=== PATIENT | male | born 1935 | race Caucasian/White ===

== ENCOUNTER 2024-05-28 10:53 | Outpatient (REF) | payer MEDICARE, SELFPAY ==
[2024-05-28 13:58] LABS: MANUAL DIFF FLAG NO
[2024-05-28 14:10] LABS: Basophils Absolute Auto 0.1 X10*3/uL (0.0-0.2); Eosinophils Absolute Auto 0.1 X10*3/uL (0.0-0.4); Eosinophils Percent Auto 1.9 % (0-4); Hematocrit 31.4 % (42.0-52.0); Hemoglobin 9.9 g/dl (14.0-18.0); Imm Gran Abs Auto 0.02 X10*3/uL (0.00-0.03); Imm Gran Pct Auto 0.3 % (0.0-0.4); Lymphocytes Absolute Auto 1.5 X10*3/uL (1.2-4.9); Lymphocytes Percent Auto 21.4 % (20-40); Mean Corpuscular HGB Conc 31.5 g/dl (31.0-36.0); Mean Corpuscular Hemoglobin 27.7 pg (27.0-33.0); Mean Platelet Volume 9.7 fL (9.4-12.4); Monocytes Absolute Auto 0.5 X10*3/uL (0.1-1.2); Monocytes Percent Auto 6.5 % (2-11); Neutrophils Absolute Auto 4.9 x10*3/uL (2.0-8.3); Neutrophils Percent Auto 68.9 % (45-73); Platelet Count 342 X10*3/uL (160-400); Red Blood Count 3.57 X10*6/uL (4.60-5.80); Red Cell Distribution Width 14.6 % (11.0-16.0); White Blood Count 7.2 X10*3/uL (4.8-10.8)
[2024-05-28 14:29] LABS: Estimated Average Glucose 105 mg/dL; Hemoglobin A1C 91.5677 umol/L; Hemoglobin A1c % 5.3 % (<6.0); Total Hemoglobin (HGBA1C) 2619.7925 umol/L
[2024-05-28 14:56] LABS: Alanine Aminotransferase 16 U/L (0-40); Albumin Level 3.9 g/dL (3.5-5.0); Alkaline Phosphatase 67 U/L (39-117); Anion Gap 8 (12-20); Aspartate Amino Transferase 47 U/L (5-37); Bilirubin Total 0.9 mg/dL (0.0-1.0); Blood Urea Nitrogen 24 mg/dL (9-16); Calcium 9.4 mg/dL (8.4-10.2); Carbon Dioxide 26 mmol/L (22-29); Chloride 111 mmol/L (96-108); Cholesterol 121 mg/dL (<200); Estimated Glomerular Filt Rate > 60; Glucose Random 92 mg/dL (60-115); HDL Cholesterol 42 mg/dL (>40); LDL Cholesterol Calculated 67 mg/dL (<100); Potassium 3.9 mmol/L (3.3-5.1); Sodium 141 mmol/L (135-145); Total Protein 6.9 g/dL (6.5-8.0); Triglycerides 63 mg/dL (<150)
== END 2024-05-28 10:54 | disposition home or self-care (01) ==
LOC: HO.WFDLDS 10:53
PROVIDERS: Visit Provider Internal Medicine
DX: I12.9 Hypertensive chronic kidney disease with stage 1 through stage 4 chronic kidney disease, or unspecified chronic kidney disease (principal); N18.30 Chronic kidney disease, stage 3 unspecified; I25.10 Atherosclerotic heart disease of native coronary artery without angina pectoris; Z13.1 Encounter for screening for diabetes mellitus
CPT/HCPCS: 36415; 80053; 80061; 83036; 85025; 96127; 99212

== ENCOUNTER 2024-05-28 11:16 | Outpatient (AMB) | payer MEDICARE, SELFPAY ==
--- NOTE | 2024-05-28 11:26 | MHC.PC.OV ---
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 Intake Note: New [facility] visit [facility] Required: No Accompanied by: Spouse Allergies No Known Allergies Allergy (Verified 05/28/24 11:36) Tobacco use date assessed: 05/28/24 Fall risk assessment: 2 + Falls in past year Last assessed Fall Risk: 05/28/24 Dental Screening Dental Screen Date: 05/28/24 Did you have a dental visit in the last 12 months?: No Did you have a dental problem in the last 6 months where you did not have access to dental care?: No Was dental information given to patient?: Patient declined (has false teeth) HPI HPI Comments History of Present Illness Details The patient is a 88 year old male with a past medical history of CAD s/p NSTEMI with PCI, hypertension, hyperlipidemia, CKD, OA, prostate cancer s/p radiation, ractal cancer s/p resection presenting to reestablish care CV: NSTEMI 03/2023-underwent impella assisted PCI with SILVINA to prox LAD. Recovered LVEF 50-55%, moderate , MR. asa, lipitor, toprol. Has attended cardiac rehab. Follows with cardiology at [facility]. CKD: Normalized Cr. Avoids NSAIDs Heme/Onc -Anemia-stable. -Prostate cancer s/p radiation -Rectal cancer s/p resection 2013 Colonoscopy with polypectomy 11/03/2020 ROS CONSTITUTIONAL: Denies weight loss, fever and chills. HEENT: Denies changes in vision and hearing. RESPIRATORY: Denies SOB and cough. CV: Denies palpitations and CP GI: Denies abdominal pain, nausea, vomiting and diarrhea. : Denies dysuria and urinary frequency. MSK: Denies new myalgia and joint pain. SKIN: Denies rash and pruritus. NEUROLOGICAL: Denies headache PSYCHIATRIC: Denies recent changes in mood. PHYSICAL EXAM: GENERAL: Alert and oriented x 3. NAD EYES: EOMI. Anicteric. HENT: Moist mucous membranes. No scleral icterus. No cervical lymphadenopathy. LUNGS: Clear to auscultation bilaterally. CARDIOVASCULAR: Regular rate and rhythm. No murmur. No JVD. ABDOMEN: Soft, non-tender +bs EXTREMITIES: No edema. Non-tender. SKIN: No rashes or lesions. Warm. NEUROLOGIC: No focal neurological deficits. CN II-XII grossly intact PSYCHIATRIC: Cooperative. Appropriate mood and affect [facility] Surgical History History of hip surgery H/O colonoscopy with polypectomy Family History Father Heart attack Social History Housing: Apartment (first floor) Alcohol intake: former Patient Tobacco Use Status: Former Tobacco user (quit 2012) Cigarette Packs Per Day: 1 Years Smoked: 60 e-Cigarette/Vaping Use: Never Used service: Yes Current occupational status: retired Cognitive needs: No Hearing needs: Yes (hearing aid left ear, deaf in the right ear.) Vision needs: Yes (glasses) Questionnaire PHQ-9 Over the last 2 weeks, how often have you been bothered by any of the following problems? 1. Little interest or pleasure in doing things: not at all 2. Feeling down, depressed, or hopeless: not at all 3. Trouble falling or staying asleep, or sleeping too much: not at all 4. Feeling tired or having little energy: not at all 5. Poor appetite or overeating: not at all 6. Feeling bad about yourself - or that you are a failure or have let yourself or your family down: not at all 7. Trouble concentrating on things, such as reading the newspaper or watching television: not at all 8. Moving or speaking so slowly that other people could have noticed. Or the opposite - being so fidgety or restless that you have been moving around a lot more than usual: not at all 9. Thoughts that you would be better off or of hurting yourself in some way: not at all Total score: 0 Depression Screening Interpretation: Negative Depression Screening Done: Yes 80366 - PHQ-9 Billing: Yes Source: Developed by Drs. Solis Alvarado, Karrie Rocha, Steven Brock and colleagues, with an educational lucie from [employer]. Thrive Questionnaire Date Thrive assessed: 05/28/24 I am a: Patient What is your living situation today?: I have a steady place to live Within the past 12 months, did the food you bought not last and you didn't have the money to get more?: Never true Within the past 12 months, did you worry whether your food would run out before you got money to buy more?: Never true Do you have trouble paying for medicines?: No Do you have trouble getting transportation to medical appointments?: No Do you have trouble paying your heating and electricity bill?: No Do you have trouble taking care of your child, family member or friend?: I choose not to answer this question Do you have trouble with day-to-day activities such as bathing, preparing meals, shopping, managing finances, etc.?: No Are you currently unemployed and looking for a job?: No Are you interested in more education?: No Please select the resources that you would like help with: None Currently or been in a relationship where the following occur: No concerns reported THRIVE Score: 0 AUDIT C Alcohol Use Questionnaire (AUDIT-C) 1. How often do you have a drink containing alcohol?: Never Total Score: 0 CAIN-7 AMB Questionnaire CAIN-7 Date CAIN - 7 assessed: 05/28/24 Feeling nervous, anxious, or on edge: 0 = Not at all Not being able to stop or control worryin = Not at all Worrying too much about different things: 0 = Not at all Trouble relaxin = Not at all Being so restless that it is hard to sit still: 0 = Not at all Becoming easily annoyed or irritable: 0 = Not at all Feeling afraid as if something awful might happen: 0 = Not at all Total CAIN-7 score (0-4 normal; 5-9 mild; 10-14 moderate; 15-21 severe): 0 Source: Developed by Drs. Solis Alvarado, Karrie Rocha, Steven Brock and colleagues, with an educational lucie from [employer]. CAIN-7 Assessment Billing CAIN-7 Assessment Tool: CAIN-7 Assessment 04834 Physical exam (Primary Care) Vital Signs: Last Vital Signs BP 126/58 L 05/28/24 11:43 Pulse Ox 100 05/28/24 11:43 Oxygen Delivery Method Room Air 05/28/24 11:43 BMI result Body Mass Index 26.4 Tobacco/Smoking Status: Tobacco use Status Tobacco use date assessed 05/28/24 05/28/24 11:48 Patient Tobacco Use Status Former Tobacco user (quit 05/28/24 12:04 2012) e-Cigarette/Vaping Use Never Used 05/28/24 12:04 PHQ-9: PHQ-9 Score PHQ-9: Total score 0 05/28/24 13:39 Depression Screening Interpretation: Negative Thrive Assessment: Date of Thrive Assessment Date Thrive assessed 05/28/24 05/28/24 12:04 Currently or been in a relationship where the following occur: No concerns reported Coding Level of Care Code Est Pt Level 4 (30221) Complex EM visit Add On G2211 Diagnoses Stage 3 chronic kidney disease, unspecified whether stage 3a or 3b CKD N18.30 Chronic kidney disease stage: stage 3 (moderate) Chronic kidney disease stage 3 subtype: unspecified whether 3a or 3b Primary hypertension I10 Hypertension type: primary hypertension Coronary artery disease involving [place] coronary artery, unspecified whether angina present, unspecified whether [place] or transplanted heart I25.10 Coronary Disease-Associated Artery/Lesion type: [place] artery [place] vs. transplanted heart: unspecified whether [place] or transplanted heart Associated angina: unspecified whether angina present Additional Codes CAIN-7 Assessment Billing - CAIN-7 Assessment Tool: CAIN-7 Assessment 81539 ([id number]) PHQ-9 - 40434 - PHQ-9 Billing: Yes ([id number]) Assessment & Plan Assessment & Plan (1) CKD (chronic kidney disease): Code(s): N18.9 - Chronic kidney disease, unspecified Category: Medical Qualifiers: Chronic kidney disease stage: stage 3 (moderate) Chronic kidney disease stage 3 subtype: unspecified whether 3a or 3b Qualified Code(s): N18.30 - Chronic kidney disease, stage 3 unspecified Plan: Has been stable. Avoiding NSAIDs (2) Hypertension: Code(s): I10 - Essential (primary) hypertension Category: Medical Qualifiers: Hypertension type: primary hypertension Qualified Code(s): I10 - Essential (primary) hypertension Plan: well controlled on current medication (3) CAD (coronary artery disease): Code(s): I25.10 - Atherosclerotic heart disease of [place] coronary artery without angina pectoris Category: Medical Qualifiers: Coronary Disease-Associated Artery/Lesion type: [place] artery [place] vs. transplanted heart: unspecified whether [place] or transplanted heart Associated angina: unspecified whether angina present Qualified Code(s): I25.10 - Atherosclerotic heart disease of [place] coronary artery without angina pectoris Plan: No angina Following with cardiology regularly Medications: New metoprolol succinate ER 25 mg PO DAILY 90 tabs 3RF valsartan 40 mg PO DAILY 90 tabs 3RF fluticasone propionate 50 mcg/actuation 1 inh inhalation BID 60 ea 3RF betamethasone, augmented 0.05 % (Diprolene (augmented)) 1 appl topical BID PRN 50 grams 3RF skin irritation Desitin 40 % (zinc oxide-cod liver oil) 1 appl topical BID PRN 136 grams 3RF skin irritation NS diphenhydramine HCl (Allergy Relief (diphenhydramine)) 25 mg PO BEDTIME PRN 90 tabs 3RF sleep aspirin 1 tab PO DAILY 90 tabs 3RF atorvastatin 80 mg PO BEDTIME 90 tabs 3RF
[2024-05-28 11:43] VITALS: BP 126/58; O2SAT 100; BMI 26.4
== END 2024-05-28 13:54 | disposition home or self-care (01) ==
PROVIDERS: PCP Internal Medicine; Visit Provider Internal Medicine
DX: N18.30 Chronic kidney disease, stage 3 unspecified (principal); I10 Essential (primary) hypertension; I25.10 Atherosclerotic heart disease of native coronary artery without angina pectoris

== ENCOUNTER 2025-02-10 13:15 | Outpatient (AMB) | payer MEDICARE, OTHER, SELFPAY ==
--- NOTE | 2025-02-10 14:15 | A.OFFVIS_ITS ---
Intake Vital Signs 02/10/25 14:17 Height 5 ft 8.5 in Weight 176 lb 8 oz BMI 26.4 BP 118/56 L Blood Pressure Location Lt brachial Position Sitting Respiration 14 Pulse 50 Pulse Source Pulse Oximeter Pulse Oximetry (%) 96 Oxygen Delivery Method Room Air Intake Visit Reasons: awv / memory issues Intake Note: Medical wellness visit [place] Required: No Allergies No Known Allergies Allergy (Verified 05/28/24 11:36) Do you need a note to return to daycare/school/sports/work: No HPI HPI Comments History of Present Illness Details The patient is a 89 year old male with a past medical history of CAD s/p NSTEMI with PCI, hypertension, hyperlipidemia, CKD, OA, prostate cancer s/p radiation, rectal cancer s/p resection presenting for MWV CV: NSTEMI 03/2023-underwent impella assisted PCI with SILVINA to prox LAD. Recovered LVEF 50-55%, moderate , asa, lipitor, valsartn, toprol. Has attended cardiac rehab. Follows with cardiology at [facility]. CKD: Normalized Cr. Avoids NSAIDs Heme/Onc -Anemia-stable. -Prostate cancer s/p radiation -Rectal cancer s/p resection 2013 Colonoscopy with polypectomy 11/03/2020 HRA reviewed Care team reviewed MMSE 18 which is consistent with wifes worry regarding patients memory. She would like a referral to neurology. Declines medications at this time ROS CONSTITUTIONAL: Denies weight loss, fever and chills. HEENT: Denies changes in vision and hearing. RESPIRATORY: Denies SOB and cough. CV: Denies palpitations and CP GI: Denies abdominal pain, nausea, vomiting and diarrhea. : Denies dysuria and urinary frequency. MSK: Denies new myalgia and joint pain. SKIN: Denies rash and pruritus. NEUROLOGICAL: see HPI PSYCHIATRIC: Denies recent changes in mood. PHYSICAL EXAM: GENERAL: Alert and oriented x 3. NAD EYES: EOMI. Anicteric. HENT: Moist mucous membranes. No scleral icterus. No cervical lymphadenopathy. LUNGS: Clear to auscultation bilaterally. CARDIOVASCULAR: Regular rate and rhythm. No murmur. No JVD. ABDOMEN: Soft, non-tender +bs EXTREMITIES: No edema. Non-tender. SKIN: No rashes or lesions. Warm. NEUROLOGIC: Mild aphasia. CN II-XII grossly intact PSYCHIATRIC: Cooperative. Appropriate mood and affect [facility] Surgical History History of hip surgery H/O colonoscopy with polypectomy Family History Father Heart attack Social History Housing: Apartment (first floor) Alcohol intake: former Patient Tobacco Use Status: Former Tobacco user (quit 2012) Cigarette Packs Per Day: 1 Years Smoked: 60 e-Cigarette/Vaping Use: Never Used service: Yes Current occupational status: retired Cognitive needs: No Hearing needs: Yes (hearing aid left ear, deaf in the right ear.) Vision needs: Yes (glasses) Questionnaire Medicare Wellness Checkup What is your age?: 80 or older What gender do you identify with?: male During the past 4 weeks, how much have you been bothered by emotional problems such as feeling anxious, depressed, irritable, sad or downhearted, and blue?: not at all During the past 4 weeks, has your physical & emotional health limited your social activities with family, friends, neighbors, or groups?: not at all During the past 4 weeks, how much bodily pain have you generally had?: very mild pain During the past 4 weeks, was someone available to help you if you needed & wanted help?: yes, a little During the past 4 weeks, what was the hardest physical activity you could do for at least 2 minutes?: light Can you get to places out of walking distance without help? (For eg., can you travel alone on buses, taxis or drive your car?): Yes Can you go shopping for groceries or clothes without someone's help?: Yes Can you prepare your own meals?: Yes Because of any health problems, do you need the help of another person with your personal care needs such as eating, bathing, dressing or getting around the house?: No Can you handle your own money without help?: Yes During the past 4 weeks, how would you rate your health in general?: very good During the past 4 weeks how have things been going for you?: very well; could hardly better Are you having difficulties driving your car?: no Do you always fasten your seat belt when you are in a car?: yes, usually During past 4 weeks, have you been bothered by the following: never: Falling or dizzy when standing up, Sexual problems?, Trouble eating well?, Teeth or denture problems?, Problems using the telephone? and Tiredness or fatigue? Have you fallen 2 or more times in the past year?: No Are you afraid of falling?: No Are you a smoker?: no During the past 4 weeks, how many drinks of wine, beer, or other alcoholic beverages did you have?: no alcohol at all Do you exercise for about 20 minutes 3 or more times a week?: yes, some of the time Have you been given information to help with the following?: yes: Hazards in your house that might hurt you? and yes: Keeping track of your medications? How often do you have trouble taking medicines the way you have been told to take them?: I always take medicine as prescribed How confident are you that you can control & manage most of your health problems?: very confident What is your race?: White Mini Mental State Exam (MMSE) Orientation What is the (year) (season) (date) (day) (month)?: year (2024), date (), day () and month (January) Where are we (state) (county) (town or city) (hospital) (floor)?: town or city ([place]) and floor (first) Registration Name of 3 unrelated objects clearly and slowly, then ask patient to repeat all 3 of them. (1st repeat determines score. Make sure they can repeat all three): object 1 (ball), object 2 (flag) and object 3 (tree) Attention & Calculation (CHOOSE ONE) Spell WORLD backwards (DLROW): 2 letters Recall Ask patient to repeat the 3 items from question #3.: object 1 (ball) Language Show patient a wristwatch & ask what it is. Repeat for pencil.: watch and pencil Ask the patient to repeat the phrase 'No ifs, ands, or buts' after you.: correct Ask the patient to 'take a piece of paper with their right hand' 'fold paper in half' 'place paper on floor': take paper in right hand and place paper on floor Print the sentence 'CLOSE YOUR EYES' on a piece. If patient actually closes eyes then score.: followed written direction Score Score: 18 Activity of Daily Living Bathing - sponge bath, tub bath or shower: receives no assistance (gets in/out by self, if usual bathing means Dressing - getting clothes from closets & drawers, including inner/outer garments & fasteners.: gets clothes & gets completely dressed without help Toileting - going to the 'toilet room' for urine/bowel elimination & cleaning self/arranging clothes: goes to toilet room, cleans self, arranges clothes without help Transfer: moves in & out of bed and chair without help (may use support object) Continence: controls urination/bowel movements completely by self Feeding: feeds self without help Total Score: 0 Information obtained from: patient Using telephone: independent Traveling: needs assistance Shopping: needs assistance Preparing meals: needs assistance Housework: independent Taking medicine: needs assistance Managing money: needs assistance Physical Exam Vital Signs: Last Vital Signs Pulse 50 02/10/25 14:17 Resp 14 02/10/25 14:17 BP 118/56 L 02/10/25 14:17 Pulse Ox 96 02/10/25 14:17 Oxygen Delivery Method Room Air 02/10/25 14:17 BMI result Body Mass Index 26.4 Office Procedures Flu Questionnaire Does the patient have a severe egg allergy?: No Does the patient have severe life threatening allergies?: No Does the patient have a fever or illness today?: No Has the patient ever had Guillain-Prosperity Syndrome?: No Has the patient ever had any past reaction to a flu shot?: No Immunizations Fluarix [id number] (PF) 45 mcg (15 mcg x 3)/0.5 mL IM syringe Performing Provider: Amparo Garza MD Performing Location: [facility] [place] [facility] Administered by: Joanne Eddy CMA on 02/10/25 15:41 Dose Route Admin Location Dispensed Lot Number Expiration Date [facility] Breakfast Manager 0.5 mL IM Left Deltoid 0.5 mL [id number] 11/11/25 [id number] [employer] VIS Given Date VIS Provided VIS Publication Date 02/10/25 Single Vaccine 24 Eligibility Eligibility Date Funding Source Not [facility] Eligible 02/10/25 Private Assessment & Plan Assessment & Plan (1) Medicare annual wellness visit, subsequent: Code(s): Z00.00 - Encounter for general adult medical examination without abnormal findings Plan 89 year old for MWV Interval history reviewed Memory loss-refer to neurology. MRI ordered. Labs ordered Orders: Orders Complete Blood Count Auto Diff 02/10/25 I10 - Essential (primary) hypertension, I25.10 - Atherosclerotic heart disease of [place] coronary artery without angina pectoris, M79.672 - Pain in left foot, N18.30 - Chronic kidney disease, stage 3 unspecified Comprehensive Met. Panel 02/10/25 I10 - Essential (primary) hypertension, I25.10 - Atherosclerotic heart disease of [place] coronary artery without angina pectoris, M79.672 - Pain in left foot, N18.30 - Chronic kidney disease, stage 3 unspecified Vitamin B12 and Folate 02/10/25 R41.3 - Other amnesia Lipid Panel 02/10/25 I10 - Essential (primary) hypertension, I25.10 - Atherosclerotic heart disease of [place] coronary artery without angina pectoris, M79.672 - Pain in left foot, N18.30 - Chronic kidney disease, stage 3 unspecified Hemoglobin A1c 02/10/25 I10 - Essential (primary) hypertension, I25.10 - Atherosclerotic heart disease of [place] coronary artery without angina pectoris, M79.672 - Pain in left foot, N18.30 - Chronic kidney disease, stage 3 unspecified IRON PROFILE 02/10/25 I10 - Essential (primary) hypertension, I25.10 - Atherosclerotic heart disease of [place] coronary artery without angina pectoris, M79.672 - Pain in left foot, N18.30 - Chronic kidney disease, stage 3 unspecified TSH reflex Free T4 02/10/25 I10 - Essential (primary) hypertension, I25.10 - Atherosclerotic heart disease of [place] coronary artery without angina pectoris, M79.672 - Pain in left foot, N18.30 - Chronic kidney disease, stage 3 unspecified MR head/brain wo con 02/10/25 R41.3 - Other amnesia Influenza [id number] Immunization 02/10/25 Z23 - Encounter for immunization Referrals 2 Neurology Referral R41.3 - Other amnesia Podiatry Referral M79.672 - Pain in left foot Medications: New levocetirizine (Xyzal) 5 mg PO DAILY PRN 90 tabs 3RF allergy symptoms menthol-zinc oxide 0.44-20.6 % (Calmoseptine) 1 appl topical QID PRN 113 grams 3RF skin irritation Discontinued Desitin 40 % (zinc oxide-cod liver oil) Discontinued Reason: Doctor's Order 1 appl topical BID PRN 136 grams 3RF skin irritation NS Quality Reporting (2019) Fall Risk Screening ([facility] 139) Last assessed Fall Risk: 02/10/25 Fall risk assessment: No Falls in past year Coding Level of Care Code Medicare Subsequent (G0439) Diagnoses Medicare annual wellness visit, subsequent Z00.00
[2025-02-10 14:17] VITALS: BP 118/56; PULSE 50; RESP 14; O2SAT 96; BMI 26.4
== END 2025-02-10 15:11 | disposition home or self-care (01) ==
LOC: HO.HMCFM 13:16
PROVIDERS: PCP Internal Medicine; Visit Provider Internal Medicine
DX: Z23 Encounter for immunization (principal)

== ENCOUNTER 2025-02-10 13:15 | Outpatient (REF) | payer MEDICARE, OTHER, SELFPAY ==
[2025-02-10 17:42] LABS: MANUAL DIFF FLAG NO
[2025-02-10 17:51] LABS: Hematocrit 32.9 % (42.0-52.0); Hemoglobin 10.5 g/dl (14.0-18.0); Imm Gran Abs Auto 0.01 X10*3/uL (0.00-0.03); Imm Gran Pct Auto 0.2 % (0.0-0.4); Lymphocytes Absolute Auto 1.5 X10*3/uL (1.2-4.9); Mean Corpuscular HGB Conc 31.9 g/dl (31.0-36.0); Mean Corpuscular Hemoglobin 28.5 pg (27.0-33.0); Mean Corpuscular Volume 89.2 fL (80.0-98.0); NRBC Abs Auto 0.000 X10*3/uL (0.0-0.012); NRBC Pct Auto 0.0 /100WBC (0.0-0.2); Platelet Count 216 X10*3/uL (160-400); Red Blood Count 3.69 X10*6/uL (4.60-5.80); White Blood Count 6.5 X10*3/uL (4.8-10.8)
[2025-02-10 18:19] LABS: Alanine Aminotransferase 22 U/L (0-40); Albumin Level 4.3 g/dL (3.5-5.0); Alkaline Phosphatase 61 U/L (39-117); Anion Gap 12 (12-20); Aspartate Amino Transferase 40 U/L (5-37); Blood Urea Nitrogen 34 mg/dL (9-16); Calcium 9.6 mg/dL (8.4-10.2); Carbon Dioxide 24 mmol/L (22-29); Chloride 112 mmol/L (96-108); Cholesterol 139 mg/dL (<200); Estimated Glomerular Filt Rate 50; HDL Cholesterol 49 mg/dL (>40); Iron 50 mcg/dL (45-160); Percent Iron Saturation 18 % (15-50); Potassium 4.7 mmol/L (3.3-5.1); Sodium 143 mmol/L (135-145); Total Iron Binding Capacity 273 mcg/dL (228-428); Total Protein 7.3 g/dL (6.5-8.0); Triglycerides 53 mg/dL (<150); Unsaturated Iron Binding 223 ug/dL
[2025-02-10 18:36] LABS: Folate 12.1 ng/mL (> or = 4.0); Vitamin B12 447 pg/mL (200-900)
== END 2025-02-10 13:16 | disposition home or self-care (01) ==
LOC: HO.WFDLDS 13:15
PROVIDERS: PCP Internal Medicine; Visit Provider Internal Medicine
DX: Z00.00 Encounter for general adult medical examination without abnormal findings (principal); I12.9 Hypertensive chronic kidney disease with stage 1 through stage 4 chronic kidney disease, or unspecified chronic kidney disease; N18.30 Chronic kidney disease, stage 3 unspecified; I25.10 Atherosclerotic heart disease of native coronary artery without angina pectoris; M79.672 Pain in left foot; R41.3 Other amnesia; Z13.1 Encounter for screening for diabetes mellitus; Z23 Encounter for immunization
CPT/HCPCS: 36415; 80053; 80061; 82607; 82746; 83036; 83540; 84443; 85025; 90471; 90656

== ENCOUNTER 2025-03-02 10:13 | Outpatient (REF) | payer MEDICARE, OTHER, SELFPAY ==
--- NOTE | ~2025-03-02 | MR_ITS ---
EXAMINATION: MR BRAIN WITHOUT CONTRAST CLINICAL INFORMATION: R 41.3. Other amnesia. COMPARISON: None available. TECHNIQUE: MRI of the brain was obtained using routine sequences without contrast. FINDINGS: No restricted diffusion. No acute intracranial hemorrhage, mass effect, midline shift, hydrocephalus or herniation. Wisdom-white matter differentiation is normal. Bilateral multifocal patchy and confluent deep periventricular white matter subcortical white matter hyperintense T2 FLAIR signal involving centrum semiovale and braxton radiata. Prominence of the extra-axial CSF spaces cerebral sulci, ventricles involving mostly the frontoparietal lobes. Flow-void signal within the main cerebral vessels is normal. Dolichoectatic appearance of the left vertebral vascular system. There is a 6.4 m isointense T1 hypointense T2 no restricted diffusion round signal abnormality at the right porus acusticus. Sellar/suprasellar region demonstrated no signal abnormality or masses. Craniocervical junction is intact with normal position of the cerebellar tonsils. There is a periodontal pannus formation without compressive in the medulla oblongata/upper cervical spinal cord. Edentulous. MR/MR head/brain wo con IMPRESSION: No acute brain abnormality. 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 Recommend dedicated IV contrast enhanced MRI IAC protocol. Electronically signed by: Ab Bae MD 03/03/2025 07:19 AM EDT
== END 2025-03-02 10:14 | disposition home or self-care (01) ==
LOC: HO.MRI 10:13
PROVIDERS: PCP Internal Medicine; Visit Provider Internal Medicine
DX: R41.3 Other amnesia (principal)
CPT/HCPCS: 70551

== ENCOUNTER → 2025-03-02 10:16 | Outpatient (BNV) | payer MEDICARE, OTHER, SELFPAY | PROVIDERS: PCP Internal Medicine; Visit Provider Radiology Diagnostic Radiology | DX: I67.82 Cerebral ischemia (principal); G31.9 Degenerative disease of nervous system, unspecified; G93.9 Disorder of brain, unspecified | CPT/HCPCS: 70551 ==

== ENCOUNTER 2025-05-13 15:32 | Outpatient (AMB) | payer MEDICARE, OTHER, SELFPAY ==
--- OUTSIDE RECORDS SUMMARY | 2025-05-07 23:59 | XMS_ITS | Continuity of Care Document ---
Author Organization [facility] Address [address] [place] [address]- Care Team Providers Care Food Checker Name Role Phone Kayla YI, Amparo Sahu Primary Care Physician [phone] [id number] Date(s): 04/30/25 - 05/07/25 [facility] [address], [place] [address] Attending Physician: Monico Albright MD Admitting Physician: Monico Albright MD Referring Physician: Amparo Garza MD Encounter Type: Office Visit Allergies, Adverse Reactions, Alerts No Known Allergies Immunizations Given and Recorded Vaccine Date Status Refusal Reason influenza virus vaccine, inactivated 03/30/22 Honorio rded influenza virus vaccine, inactivated 03/05/19 Honorio rded SARS-CoV-2 (COVID-19) mRNA-1273 vaccine 04/09/21 R ecorded SARS-CoV-2 (COVID-19) mRNA-1273 vaccine 08/06/20 R ecorded SARS-CoV-2 (COVID-19) mRNA-1273 vaccine 07/09/20 R ecorded tetanus-diphtheria toxoids (Td) 06/14/20 Recorded pneumococcal 13-valent vaccine 01/23/15 Recorded tetanus/diphtheria/pertussis, acel(Tdap) 01/23/15 Recorded pneumococcal 23-valent vaccine 01/18/14 Given Medications Aspirin Low Dose 81 mg oral tablet, chewable 1 tablet = 81 mg, By Mouth, Daily, # 90 tablet, 3 Refills, Maintenance, 08/11/23 11:23:00 AM EDT, [facility] #[id number], Partial fill upon patient request if the prescription is for a schedule II opioid drug., 174, cm, 08/11/23 10:56:00 EDT, Height, 84.6, kg, 07/11/23 14:19:00 EST, Dry Weight Start Date: 08/11/23 Stop Date: 08/05/24 Status: Ordered Medication Dispense Status: Completed Quantity: 90.0 Unit: tablet Total Allowed Fills: 4 Fills Dispensed: 0 atorvastatin 80 mg oral tablet 1 tablet = 80 mg, By Mouth, Daily at bedtime, # 90 tablet, 3 Refills, Maintenance, 06/13/23 1:04:00 PM EST, Tablet, [facility] #[id number], Partial fill upon patient request if the prescription is for a schedule II opioid drug., 174, cm, 05/23/23 14:00:00 EST, Height, 82, kg, 04/24/23 10:38:00 EST, Dry Weight Start Date: 06/13/23 Status: Ordered Medication Dispense Status: Completed Quantity: 90.0 Unit: tablet Total Allowed Fills: 4 Fills Dispensed: 0 Metoprolol Succinate ER 25 mg oral tablet, extended release 1 tablet = 25 mg, By Mouth, Daily, # 90 tablet, 3 Refills, Maintenance, 06/05/23 4:05:00 PM EST, ER Tablet, [facility] #[id number], Partial fill upon patient request if the prescription is for a schedule II opioid drug., 174, cm, 05/23/23 14:00:00 EST, Height, 82, kg, 04/24/23 10:38:00 EST, DryWeight Start Date: 06/05/23 Status: Ordered Medication Dispense Status: Completed Quantity: 90.0 Unit: tablet Total Allowed Fills: 4 Fills Dispensed: 0 nitroglycerin 0.4 mg sublingual tablet 1 tablet = 0.4 mg, Sublingual, Every 5 minutes, PRN Chest Pain, not to exceed 3 doses/15 min--if pain persists, seek medical attention, # 600 tablet, 0 Refills, Maintenance, 02/12/23 12:15:00 PM EDT, Tablet, [facility], Partial fill upon patient request if the prescription is for a schedule II opioid drug., 174, cm, 02/12/23 7:24:00 EDT, Height, 93, kg, 02/06/23 17:44:00 EDT, Dry Weight Start Date: 02/12/23 Status: Ordered Medication Dispense Status: Completed Quantity: 600.0 Unit: tablet Total Allowed Fills: 1 Fills Dispensed: 0 Prevagen = 50 mcg, By Mouth, Daily, 0 Refills, Maintenance, 01/31/25 1:30:00 PM EDT, Partial fill upon patient request if the prescription is for a schedule II opioid drug. Start Date: 01/31/25 Status: Ordered Medication Dispense Status: Completed Total Allowed Fills: 1 Fills Dispensed: 0 valsartan 40 mg oral tablet 40 mg, 1, tablet, By Mouth, Daily, # 90 tablet, Refills 0, Tot. Refills 0, Maintenance, 02/12/23 12:15:00 PM EDT, Route to Pharmacy Electronically, [facility], Partial fill upon patient request if the prescription is for a schedule II opioid drug., 174, cm, 02/12/23 7:24:00 EDT, Height, 93, kg, 02/06/23 17:44:00 EDT, Dry Weight Start Date: 02/12/23 Stop Date: 03/14/23 Status: Ordered Medication Dispense Status: Completed Quantity: 90.0 Unit: tablet Total Allowed Fills: 1 Fills Dispensed: 0 Problem List Condition Confirmation Course Effective Dates Status H ealth Status Informant Arthritis Confirmed Active Former smoker Confirmed Active History of prostate cancer Confirmed Active History of rectal cancer Confirmed Active High cholesterol Confirmed Active High blood pressure Confirmed Active ANJALI (iron deficiency anemia) Confirmed Active NSTEMI (non-ST elevated myocardial infarction) Confirmed Active Osteoarthritis Confirmed Active Rheumatic fever Confirmed Active Vital Signs Most recent to oldest [Reference Range]: 1 Height 173 cm (04/30/25 3:40 PM) Weight 72.72 kg (04/30/25 3:40 PM) Oxygen Saturation [94-100 %] 97 % (04/30/25 3:40 PM) Pulse Rate [55-90 bpm] 53 bpm *L* (04/30/25 3:40 PM) Body Mass Index [18.5-24.99 kg/m2] 24.3 kg/m2 (04/30/25 3:40 PM) Blood Pressure [90-138/55-84 mm Hg] 128/ 62mm Hg (04/30/25 3:40 PM) Blood pressure sites Arm, right (04/30/25 3:40 PM) Weight Obtained Via Patient/family state d (04/30/25 3:40 PM) Social History Social History Type Response Sexual Sexually involved in last 6 months: No. Smoking Status Former smoker, quit more than 30 days ago; Other: Quit 05/16 PPD; entered on: 02/17/23 Sex Sex Representation Male (finding) Note * Mukesh Armstrong: PERFORM Event Display: Patient Education/Instruction Authored Date: [id number] Ambulatory Adult Visit Summary [facility] [address] [place] [id number] Name: SORIN DIEGO : 1935?? Visit: 04/30/2025 14:46?? Ambulatory Visit Instructions ?? Your Care Team Primary Care Provider Amparo Garza MD? This Visit Provider Monico Albright MD Vitals Signs Pulse Rate:??53 bpm??Low Height: 173 cm Systolic Blood Pressure: 128 mm Hg Weight: 72.72 kg Diastolic Blood Pressure: 62 mm Hg Body Mass Index: 24.3 kg/m2 Oxygen Saturation: 97 % Body surface area: 1.87 What to do next Scheduled Follow-Up Appointments Monday 9:45 AM EST ?? Type: Inpatient Follow Up With: Thom GIRARD, Cabrera Longoria Where: [facility] [address] [place] [address]- Status: Pending Monday2025 2:40 PM EST ?? Type: [facility] Where: [facility] [address] [place] [phone]- Status: Pending Future Orders VL Aorta Iliac Duplex Scan Comp, Routine, Reason for Exam: AAA, Arteries to Examine: Common Iliac Artery, Once, *Est. 10/29/25 +/- 28 days Medications The list below reflects the information in our records and provided by you today along with any changes made during this visit. Please continue your medications until treatment is completed or stopped by your provider. If this is different from the information you have or there are other questions,please contact the prescribing provider. What How Much When Instructions Unchanged Aspirin (Aspirin Low Dose 81 mg oral tablet, chewable) 1 tab(s) Oral Daily Duration: 90 Days Ordering Physician: Amparo Garza MD Unchanged Atorvastatin (atorvastatin 80 mg oral tablet) 1 tab(s) Oral Daily at Bedtime Ordering Physician: Amparo Garza MD Unchanged Cholecalciferol (Prevagen) 50 Microgram Oral Daily Unchanged Metoprolol (Metoprolol Succinate ER 25 mg oral tablet, extended release) 1 tab(s) Oral Daily Ordering Physician: Amparo Garza MD Unchanged Nitroglycerin (nitroglycerin 0.4 mg sublingual tablet) 1 tab(s) Sublingual Every 5 minutes as needed for Chest Pain Special Instructions: not to exceed 3 doses/ 15 min--if pain persists, seek medical attention Ordering Physician: Jonathan Asher MD ?? Unchanged Valsartan (valsartan 40 mg oral tablet) 1 tab(s) Oral Daily Ordering Physician: Jonathan Asher MD Medications and Immunizations Administered Medications Given During Visit No medications given during this visit.?? Allergies (NKA means No Known Allergies) NKA Common Emergency Awareness Tips IS IT A STROKE? Act FAST and Check for these signs: FACE Does the face look uneven? ARM Does one arm drift down? SPEECH Does their speech sound strange? TIME Call at any sign of stroke ?? Heart Attack Signs Chest discomfort: Most heart attacks involve discomfort in the center of the chest and lasts more than a few minutes, or goes away and comes back. It can feel like uncomfortable pressure, squeezing, fullness or pain. Discomfort in upper body: Symptoms can include pain or discomfort in one or both arms, back, neck, jaw or stomach. Shortness of breath: With or without discomfort. Other signs: Breaking out in a cold sweat, nausea, or lightheaded. Remember, MINUTES DO MATTER. If you experience any of these heart attack warning signs, call to get immediate medical attention! ?? Smoking can increase your chances of developing chronic health problems and can cause harmful effects to other family members in your house. If you smoke, you are strongly encouraged to quit. Please call [employer] [facility] at [phone] or 6-386-740-[employer] ([phone]) or log in to [email or web address] for referrals to smoking cessation programs. ?? The National Suicide Prevention Hotline is available 05/12 if you or someone you know needs to find a reason to keep living. By calling 6-593-822-Aunt Kitchen (3692) you'll be connected to a skilled, trained counselor at a crisis center in your area. [facility] Portal You can view and manage your care through the patient portal or by using a health care sascha of your choosing. [employer] is a website that allows you to securely view your medical information including your hospital discharge summary, office visit summaries, medications and follow-up visits. You can also request appointments, renew medications, and request access to your medical information using a health care sascha of your choosing, or just ask a question. You can enroll at [email or web address] or register during your next office visit. [facility], in keeping with [facility] guidance, no longer requires face masks for staff, patientsor visitors in most situations. Similiar to time spent indoors at other locations, there is the chance that you were exposed to repiratory viruses during your time with us (such as flu or COVID-19). If you develop symptoms concerning for a viral respiratory infection, please seek testing (and treatment if indicated) from your medical provider or home test kit. ?? Disclaimer: The information provided is of a general nature and is intended to be used in conjunction with the recommendations and advice of your health care practitioner. Every effort has been made to ensure that the information provided is accurate and complete at the time it is provided to you however, as your needs change, or, as new information becomes available, different or additional instructions may be required. ?? If you have questions, please consult with your primary care provider or pharmacist, as appropriate. This information is not intended to serve as substitution for assessment and evaluation by a qualified health care provider. If you do not have a primary care provider, you may find a [facility] provider by calling [employer] [facility] at [phone]. Patient Care team information Care Team Personnel Name: Sandra Beaulieu Position: [facility] RN Member Role: Primary Care Nurse Name: Ruth Quintana NP Position: [facility] Associate Professional Member Role: Primary Care Nurse Address: [address] [place] [address] Drive [address] [place] [address]- Telecom: Name: Mary Viera RN Position: S RN Member Role: Primary Care Nurse Name: Amparo Garza MD Position: Reference Physician Member Role: PCP Address: [address] [place] [id number]- [place] Telecom: Name: Marycruz Garcia RN Position: S RN Member Role: Primary Care Nurse Name: Lorna Lovell RN Position: [facility] RN Member Role: Primary Care Nurse Care Team Related Persons Name: BRANDIELEONID Name: ANDERS IZQUIERDO Insurance Providers Guarantor name: SORIN BRANDIE Health Plan Information #: 1 Payer: MEDICARE B Payer Identifier: Member Number: [id number] Group Number: Subscriber Identifier: [id number] Relationship to Subscriber: self Coverage Type: NA Coverage Verification Date: NA Telecom: NA Address: Health Plan Information #: 2 Payer: FOR LIFE Payer Identifier: NA Member Number: [id number] Group Number: Subscriber Identifier: [id number] Relationship to Subscriber: self Coverage Type: For Life--Medicare Supplement Coverage Verification Date: Telecom: Address:
--- NOTE | 2025-05-13 15:34 | A.OFFPC_ITS ---
Vital Signs 05/13/25 15:39 Height 5 ft 8.5 in Weight 180 lb BMI 27.0 BP 139/63 Blood Pressure Location Rt brachial Position Sitting Respiration 16 Pulse 68 Pulse Source Pulse Oximeter Temp 97.2 F Temp Source Temporal Artery Scan Pulse Oximetry (%) 97 Oxygen Delivery Method Room Air Intake Visit Reasons: Pacemaker F/u Intake Note: patient here for follow up on pace maker Ophthalmologist Required: No Allergies No Known Allergies Allergy (Verified 05/13/25 15:37) Tobacco use date assessed: 05/13/25 Fall risk assessment: 1 Fall in past year Last assessed Fall Risk: 05/13/25 Dental Screening Dental Screen Date: 05/13/25 Did you have a dental visit in the last 12 months?: No Did you have a dental problem in the last 6 months where you did not have access to dental care?: No Was dental information given to patient?: No HPI HPI Comments History of Present Illness Details The patient is a 89 year old male with a past medical history of CAD s/p NSTEMI with PCI, PPM, hypertension, hyperlipidemia, CKD, OA, prostate cancer s/p radiation, rectal cancer s/p resection presenting for follow up CV: PPM 03/2025 after syncopal episode. Had follow up with cardiology thereafter ([facility]). NSTEMI 03/2023-underwent impella assisted PCI with SILVINA to prox LAD. Recovered LVEF 50-55%, moderate , MR. asa, lipitor, valsartan, toprol. CKD: Normalized Cr. Avoids NSAIDs Heme/Onc -Anemia-stable. -Prostate cancer s/p radiation -Rectal cancer s/p resection 2013 Neuro: memory continues to decline per . MMSE last visit 18. She helps him manage health. Has upcoming appt with neurology. Open MRI was ordered for Angela- has not heard regarding scheduling Continued pain in left heel, callus formation. Was referred previously to podiatry but did not get a call. Referred again today Colonoscopy with polypectomy 11/03/2020 ROS see HPI PHYSICAL EXAM: GENERAL: Alert and oriented x 3. NAD EYES: EOMI. Anicteric. HENT: Moist mucous membranes. No scleral icterus. No cervical lymphadenopathy. LUNGS: Clear to auscultation bilaterally. CARDIOVASCULAR: Regular rate and rhythm.No JVD. ABDOMEN: Soft, non-tender +bs EXTREMITIES: Tracel bilateral edema. SKIN: Left heel painful to palpation. Callus formation. No redness or warmth NEUROLOGIC: Mild aphasia. CN II-XII grossly intact PSYCHIATRIC: Cooperative. Appropriate mood and affect [facility] Surgical History History of hip surgery H/O colonoscopy with polypectomy Family History Father Heart attack Social History Housing: Apartment (first floor) Alcohol intake: former Patient Tobacco Use Status: Former Tobacco user (quit 2012) Cigarette Packs Per Day: 1 Years Smoked: 60 e-Cigarette/Vaping Use: Never Used service: Yes Current occupational status: retired Current occupational exposures/hazards: No Cognitive needs: No Hearing needs: Yes (hearing aid left ear, deaf in the right ear.) Vision needs: Yes (glasses) Questionnaire Thrive Questionnaire Date Thrive assessed: 05/28/24 I am a: Patient What is your living situation today?: I have a steady place to live Within the past 12 months, did the food you bought not last and you didn't have the money to get more?: Never true Within the past 12 months, did you worry whether your food would run out before you got money to buy more?: Never true Do you have trouble paying for medicines?: No Do you have trouble getting transportation to medical appointments?: No Do you have trouble paying your heating and electricity bill?: No Do you have trouble taking care of your child, family member or friend?: I choose not to answer this question Do you have trouble with day-to-day activities such as bathing, preparing meals, shopping, managing finances, etc.?: No Are you currently unemployed and looking for a job?: No Are you interested in more education?: No Currently or been in a relationship where the following occur: No concerns reported THRIVE Score: 0 CAIN-7 AMB Questionnaire CAIN-7 Date CAIN - 7 assessed: 05/28/24 Source: Developed by Drs. Solis Alvarado, Karrie Rocha, Steven Brock and colleagues, with an educational lucie from [employer]. Physical exam (Primary Care) Vital Signs: Last Vital Signs Temp 97.2 F 05/13/25 15:39 Pulse 68 05/13/25 15:39 Resp 16 05/13/25 15:39 BP 139/63 05/13/25 15:39 Pulse Ox 97 05/13/25 15:39 Oxygen Delivery Method Room Air 05/13/25 15:39 BMI result Body Mass Index 27.0 Tobacco/Smoking Status: Tobacco use Status Tobacco use date assessed 05/13/25 05/13/25 15:44 Patient Tobacco Use Status Former Tobacco user (quit 05/13/25 15:44 2012) e-Cigarette/Vaping Use Never Used 05/13/25 15:44 Thrive Assessment: Date of Thrive Assessment Date Thrive assessed 05/28/24 05/13/25 15:44 Currently or been in a relationship where the following occur: No concerns reported Coding Level of Care Code Add On Preventative Visit Only Diagnoses Coronary artery disease involving [place] coronary artery, unspecified whether angina present, unspecified whether [place] or transplanted heart I25.10 Coronary Disease-Associated Artery/Lesion type: [place] artery [place] vs. transplanted heart: unspecified whether [place] or transplanted heart Associated angina: unspecified whether angina present Primary hypertension I10 Hypertension type: primary hypertension Pacemaker Z95.0 Memory loss R41.3 Left foot pain M79.672 Assessment & Plan Assessment & Plan (1) CAD (coronary artery disease): Code(s): I25.10 - Atherosclerotic heart disease of [place] coronary artery without angina pectoris Category: Medical Qualifiers: Coronary Disease-Associated Artery/Lesion type: [place] artery [place] vs. transplanted heart: unspecified whether [place] or transplanted heart Associated angina: unspecified whether angina present Qualified Code(s): I25.10 - Atherosclerotic heart disease of [place] coronary artery without angina pectoris (2) Hypertension: Code(s): I10 - Essential (primary) hypertension Category: Medical Qualifiers: Hypertension type: primary hypertension Qualified Code(s): I10 - Essential (primary) hypertension (3) Pacemaker: Code(s): Z95.0 - Presence of cardiac pacemaker Category: Medical (4) Memory loss: Code(s): R41.3 - Other amnesia Category: Medical (5) Left foot pain: Comment: callus formation perhaps FB as well Code(s): M79.672 - Pain in left foot Category: Medical Plan 89 year old for follow up CV-following closely with cardiology. Continue current medications. BP is controlled Left foot pain-referred to podiatry Memory loss-they decline initiating medications until they see neuro. Waiting on MRI scheduling PND-nasal spray ordered. this has been effective in the past Orders: Orders Comprehensive Met. Panel 05/13/25 I10 - Essential (primary) hypertension, I25.10 - Atherosclerotic heart disease of [place] coronary artery without angina pectoris, N18.30 - Chronic kidney disease, stage 3 unspecified Lipid Panel 05/13/25 I10 - Essential (primary) hypertension, I25.10 - Atherosclerotic heart disease of [place] coronary artery without angina pectoris, N18.30 - Chronic kidney disease, stage 3 unspecified TSH reflex Free T4 05/13/25 I10 - Essential (primary) hypertension, I25.10 - Atherosclerotic heart disease of [place] coronary artery without angina pectoris, N18.30 - Chronic kidney disease, stage 3 unspecified Vitamin B12 and Folate 05/13/25 I10 - Essential (primary) hypertension, I25.10 - Atherosclerotic heart disease of [place] coronary artery without angina pectoris, N18.30 - Chronic kidney disease, stage 3 unspecified Complete Blood Count Auto Diff 05/13/25 I10 - Essential (primary) hypertension, I25.10 - Atherosclerotic heart disease of [place] coronary artery without angina pectoris, N18.30 - Chronic kidney disease, stage 3 unspecified IRON PROFILE 05/13/25 I10 - Essential (primary) hypertension, I25.10 - Atherosclerotic heart disease of [place] coronary artery without angina pectoris, N18.30 - Chronic kidney disease, stage 3 unspecified Referrals Podiatry Referral M79.672 - Pain in left foot Medications: New azelastine administer into each nostril 2 sprays intranasal BID 30 mL 3RF fluticasone propionate 50 mcg/actuation (Flonase Allergy Relief) administer into each nostril 2 sprays intranasal DAILY 16 grams 3RF lidocaine-prilocaine 2.5-2.5 % 1 appl topical BID 30 grams 3RF
[2025-05-13 15:39] VITALS: BP 139/63; PULSE 68; RESP 16; TEMP 36.2; O2SAT 97; BMI 27.0
== END 2025-05-13 16:09 | disposition home or self-care (01) ==
LOC: HO.HMCFM 15:33
PROVIDERS: PCP Internal Medicine; Visit Provider Internal Medicine
DX: I25.10 Atherosclerotic heart disease of native coronary artery without angina pectoris (principal); I10 Essential (primary) hypertension; R41.3 Other amnesia; M79.672 Pain in left foot; L84 Corns and callosities; Z95.0 Presence of cardiac pacemaker

== ENCOUNTER → 2025-05-13 15:32 | Outpatient (BNVA) | payer MEDICARE, OTHER, SELFPAY | PROVIDERS: PCP Internal Medicine; Visit Provider Internal Medicine | DX: I25.10 Atherosclerotic heart disease of native coronary artery without angina pectoris (principal); I12.9 Hypertensive chronic kidney disease with stage 1 through stage 4 chronic kidney disease, or unspecified chronic kidney disease; N18.30 Chronic kidney disease, stage 3 unspecified; R41.3 Other amnesia; M79.672 Pain in left foot; Z85.46 Personal history of malignant neoplasm of prostate; Z85.048 Personal history of other malignant neoplasm of rectum, rectosigmoid junction, and anus; Z92.3 Personal history of irradiation; Z95.0 Presence of cardiac pacemaker; Z98.61 Coronary angioplasty status; Z87.891 Personal history of nicotine dependence | CPT/HCPCS: 99212 ==